=== PATIENT | male | born 1985 ===

== ENCOUNTER 2023-05-06 18:47 | Emergency (ER) | payer MEDICAID, OTHER ==
[~2023-05-06] VITALS: Ht 177.8 cm; Wt 102.3 kg
[2023-05-06 19:10] VITALS: BP 143/82; PULSE 88; RESP 18; O2SAT 98
[2023-05-06 20:45] LABS: Urine Bacteria NONE SEEN /hpf (None Seen); Urine Blood Negative /uL (Negative); Urine Clarity Clear (Clear); Urine Color Colorless (Yellow); Urine Protein, UAD Negative (Negative); Urine Specific Gravity 1.012 (1.001-1.035); Urine Urobilinogen Normal (Negative); Urine WBC 1 /hpf (0 - 3); Urine pH 5.5 (5.0-8.0)
[2023-05-06] MEDS: AZITHROMYCIN 250 MG TAB PO ONE (22:33)
[2023-05-06] MEDS: cefTRIAXone SOD 500 MG VL IM ONE (22:34)
== END 2023-05-06 23:01 | disposition home or self-care (01) ==
LOC: EEVIPCON 18:47 → ER 18:47
DX: R30.0 Dysuria (principal); R20.8 Other disturbances of skin sensation; Z20.2 Contact with and (suspected) exposure to infections with a predominantly sexual mode of transmission
CPT/HCPCS: 81001; 96372; 99283; J0696